=== PATIENT | female | born 1965 | race Caucasian/White ===

== ENCOUNTER 2016-06-13 00:13 | Emergency (ER) | payer BC ==
[2016-06-13] MEDS ORDERED: IPRATROPIUM/ALBUTEROL 0.5-2.5 MG/3 ML AMPUL NEB ONE (02:13)
[2016-06-13] MEDS ORDERED: PREDNISONE 20 MG TABLET PO ONE (02:13)
--- NOTE | 2016-06-13 02:16 | ER Document Report ---
ED General - General Chief Complaint: Difficulty Swallowing Stated Complaint: DIFFICULTY BREATHING Notes: Patient is a 51-year-old female presents with complaint of recurrent cough, some wheezing, some congestion. Today she said she went to a long coughing spell and then felt like her heart started to race and she became anxious. The symptoms since resolved. She does smoke. She denies any fevers. No other complaints at this time. No history of asthma. TRAVEL OUTSIDE OF THE [place] IN LAST 30 DAYS: No - Related Data Allergies/Adverse Reactions: aspirin [Aspirin] Allergy (Severe, Verified 12/30/15 08:27) ondansetron HCl [From Zofran] Allergy (Severe, Verified 12/30/15 08:27) itching, redness and whelps Penicillins Allergy (Severe, Verified 12/30/15 08:27) Past Medical History - Social History Smoking Status: Current Every Day Smoker Chew tobacco use (# tins/day): No Frequency of alcohol use: None Drug Abuse: None Family History: Arthritis, CAD, DM, Hyperlipidemia, Hypertension, Malignancy, Thyroid Disfunction Patient has suicidal ideation: No Patient has homicidal ideation: No - Past Medical History Cardiac Medical History: Reports: Hx Hypertension Denies: Hx Heart Attack Pulmonary Medical History: Denies: Hx Asthma, Hx Bronchitis, Hx COPD, Hx Pneumonia Neurological Medical History: Denies: Hx Seizures Renal/ Medical History: Denies: Hx Peritoneal Dialysis Musculoskeltal Medical History: Denies Hx Arthritis, Reports Hx Musculoskeletal Trauma - Fractured foot Traumatic Medical History: Reports: Hx Fractures - foot Past Surgical History: Reports: Hx Cholecystectomy - Immunizations Hx Diphtheria, Pertussis, Tetanus Vaccination: Yes Review of Systems - Review of Systems Notes: My Normal Review Basic REVIEW OF SYSTEMS: CONSTITUTIONAL : Denies fever, chills, or sweats. Denies recent illness. EENT: Some congestion CARDIOVASCULAR: Denies chest pain. RESPIRATORY: Recurrent cough GASTROINTESTINAL: Denies abdominal pain. Denies nausea, vomiting, or diarrhea. Denies constipation. Last BM: MUSCULOSKELETAL: Denies neck or back pain or joint pain or swelling. SKIN: Denies rash or skin lesions. NEUROLOGICAL: Denies altered mental status or loss of consciousness. Denies headache. Denies weakness or paralysis or loss of use of either side. Denies problems with gait or speech. Denies sensory or motor loss. ALL OTHER SYSTEMS REVIEWED AND NEGATIVE. Physical Exam - Vital signs Vitals: Temp Pulse Resp BP Pulse Ox 97.6 F 76 20 152/84 H 100 06/13/16 00:21 06/13/16 00:21 06/13/16 00:21 06/13/16 00:21 06/13/16 00:21 - Notes Notes: General Appearance: Well nourished, alert, cooperative, no acute distress, no obvious discomfort. Recurrent dry cough during exam. Well-appearing. Vitals: reviewed, See vital signs table. Head: no swelling or tenderness to the head Eyes: PERRL, EOMI, Conjuctiva clear Mouth: No decreasd moisture Throat: No tonsillar inflammation, No airway obstruction, No lymphadenopathy Neck: Supple, no neck tenderness, No thyromegaly Lungs: No wheezing, No rales, some scattered rhonci, No accessory muscle use, good air exchange bilaterally. Heart: Normal rate, Regular rythm, No murmur, no rub Skin: warm, dry, appropriate color, no rash Neuro: speech clear, oriented x 3, normal affect, responds appropriately to questions. Course - Vital Signs Vital signs: Temp Pulse Resp BP Pulse Ox 97.6 F 76 20 152/84 H 100 06/13/16 00:21 06/13/16 00:21 06/13/16 00:21 06/13/16 00:21 06/13/16 00:21 - Transfer of Care Notes: 06/13/16 03:29 Patient symptoms are very consistent with bronchitis. She had mild wheezing and rhonchorous breath sounds. Breathing treatment resolving. She's been having coughing a lot last several days and is a smoker. Chest x-rays negative for pneumonia. Patient will be discharged home with an Albuterol inhaler and prednisone. She's encouraged return to ER shows difficulty breathing, fevers, recurrent wheezing not responding to the inhaler, or she feels unwell. Patient agrees with plan and will be discharged home. 06/13/16 03:30 Dictation of this chart was performed using voice recognition software; therefore, there may be some unintended grammatical errors. Discharge - Discharge Clinical Impression: Bronchitis Condition: Good Disposition: HOME, SELF-CARE Additional Instructions: BRONCHITIS WITH BRONCHOSPASM (WHEEZING): You have bronchitis with bronchospasm (wheezing). Sometimes people develop wheezing with a chest cold. This occurs either because of an underlying tendency toward asthma or because the virus itself irritates the bronchial tubes. This irritation causes cough, shortness of breath, and wheezing. Emergency treatment of bronchospasm may include adrenaline shots or bronchodilator aerosol. You may feel lightheaded and have a rapid pulse for an hour or two. Rest and get plenty of fluids. At home, we'll treat you with a bronchodilator inhaler. Corticosteroids may be required for some patients. Until you recover, avoid chemical fumes, dusts, pollens, and exercising in very cold or dry air. If you smoke, stop now! Most cases of bronchitis get better without antibiotics. We prescribe antibiotics when we believe bacteria are damaging your airways, or if there's high risk the bronchitis will worsen into pneumonia. Increase your fluid intake. A cool mist humidifier may make your lungs more comfortable. An expectorant (cough medicine that loosens phlegm) can help. Repeated episodes of bronchitis and bronchospasm may result in lung damage -- for example, chronic bronchitis, recurrent pneumonias, or emphysema. If you develop a fever, increased wheezing, chest pain, or severe shortness of breath, you should contact the doctor immediately. INHALED BRONCHODILATORS: You have received a treatment of and/or prescription for an inhaled bronchodilator -- a medication which stimulates the airways in the lung to dilate. This improves the flow of air in asthma, bronchitis, and emphysema. These medicines have some similarity to adrenaline, and can cause similar side effects: shakiness, racing heart, and a sense of nervousness. These side effects decrease with time. Contact your doctor if these side effects are severe. Do not over-use the medicine. Too-frequent use of the inhaler may make it ineffective. Call your doctor if the inhaler is not controlling your symptoms at the prescribed doses. STEROID MEDICATION: You have been given an injection of or oral medicine of the cortisone/ steroid class. This medication is used to control inflammation or allergy. Kamari t is usually only given for a short period of time, until the acute process subsides. There are usually no side effects from short-term use of cortisone-like medications. Some persons feel an increased sense of well-being and are not sleepy at bedtime. Long-term use of cortisone medications is best avoided, unless required for a severe condition. If your condition does not remit, or relapses after the course of corticosteroid medication, you should consult your physician. SMOKING: If you smoke, you should stop smoking. The tar and chemicals in cigarette smoke are harmful. Smoking has been shown to cause: emphysema chronic bronchitis lung cancer mouth and throat cancer stomach and pancreas cancer premature aging defects In addition, smoking increases ear and lung infections in children of smokers. FOLLOW-UP CARE: If you have been referred to a physician for follow-up care, call the physician s office for an appointment as you were instructed or within the next two days. If you experience worsening or a significant change in your symptoms, notify the physician immediately or return to the Emergency Department at any time for re-evaluation. Please return to ER immediately if you have difficulty breathing, recurrent wheezing not responding to your inhaler, chest pain, fevers, or feel unwell. Please use inhaler as 2 puffs every 4 hours as needed for wheezing. Prescriptions: Prednisone [Deltasone 20 mg Tablet] 3 tab PO DAILY 3 Days Forms: Return to Work
[2016-06-13] MEDS ORDERED: ALBUTEROL SULFATE HFA (90 MCG/PUFF) 8 GM MDI (1 MDI/ER DISP) IH ONE (03:26)
[2016-06-13 03:44] VITALS: BP 121/67
== END 2016-06-13 03:44 | disposition home or self-care (01) ==
LOC: ER 00:13
DX: J40 Bronchitis, not specified as acute or chronic (principal); R06.2 Wheezing; F17.200 Nicotine dependence, unspecified, uncomplicated; I10 Essential (primary) hypertension; Z88.6 Allergy status to analgesic agent; Z88.0 Allergy status to penicillin; Z90.49 Acquired absence of other specified parts of digestive tract
CPT/HCPCS: 94640; 99284; 71020; J7512; J3490; J7620

== ENCOUNTER 2017-01-20 11:01 | Emergency (ER) | payer BC ==
[2017-01-20] MEDS ORDERED: NORMAL SALINE 1000 ML 1,000 ML IV PRN (12:42)
[2017-01-20] MEDS ORDERED: MORPHINE SULFATE 10 MG/ML INJ IV ONE (12:42)
[2017-01-20] MEDS ORDERED: METOCLOPRAMIDE HCL INJ/PF 10 MG/2 ML SDV IV ONE (12:43)
--- NOTE | 2017-01-20 12:44 | ER Document Report ---
ED Medical Screen (RME) - General Chief Complaint: Chest Pain Stated Complaint: CHEST PAIN Time Seen by Provider: 01/20/17 12:41 Notes: Patient presents with left upper chest pain that radiates to her back. This been present for 4-5 days. She denies having any cough but she does feel short of breath. No previous history of DVT or PE. She is not a smoker. No history of hormone usage. Patient was diagnosed on Wednesday at urgent care with walking pneumonia". She was treated with steroids and antibiotics but the pain is getting worse. No previous history of cardiac disease. EKG at triage shows diffuse lateral ST depression that was not present on previous EKG. TRAVEL OUTSIDE OF THE [place] IN LAST 30 DAYS: No - Related Data Allergies/Adverse Reactions: aspirin [Aspirin] Allergy (Severe, Verified 01/20/17 11:15) ondansetron HCl [From Zofran] Allergy (Severe, Verified 01/20/17 11:15) itching, redness and whelps Penicillins Allergy (Severe, Verified 01/20/17 11:15) Past Medical History - Social History Chew tobacco use (# tins/day): No Frequency of alcohol use: None Drug Abuse: None - Past Medical History Cardiac Medical History: Reports: Hx Hypertension Denies: Hx Heart Attack Pulmonary Medical History: Denies: Hx Asthma, Hx Bronchitis, Hx COPD, Hx Pneumonia Neurological Medical History: Denies: Hx Seizures Renal/ Medical History: Denies: Hx Peritoneal Dialysis Musculoskeltal Medical History: Denies Hx Arthritis, Reports Hx Musculoskeletal Trauma - Fractured foot Traumatic Medical History: Reports: Hx Fractures - foot Past Surgical History: Reports: Hx Cholecystectomy, Hx Vascular Surgery - neck - Immunizations Hx Diphtheria, Pertussis, Tetanus Vaccination: Yes Physical Exam - Vital signs Vitals: Temp Pulse Resp BP Pulse Ox 98.5 F 87 18 150/78 H 99 01/20/17 11:13 01/20/17 11:13 01/20/17 11:13 01/20/17 11:13 01/20/17 11:13 Course - Vital Signs Vital signs: Temp Pulse Resp BP Pulse Ox 98.5 F 87 18 150/78 H 99 01/20/17 11:13 01/20/17 11:13 01/20/17 11:13 01/20/17 11:13 01/20/17 11:13
[2017-01-20 13:28] LABS: ABSOLUTE LYMPHOCYTES (AUTO) 1.4 10^3/uL (0.5-4.7); ABSOLUTE MONOCYTES (AUTO) 0.2 10^3/uL (0.1-1.4); ABSOLUTE NEUT (AUTO) 9.9 10^3/uL (1.7-8.2); BASOPHILS % (AUTO) 0.3 % (0-2); EOSINOPHILS % (AUTO) 0.1 % (0-6); HEMATOCRIT 39.7 % (36.0-47.0); HEMOGLOBIN 13.5 g/dL (12.0-15.5); HGB HCT DIFFERENCE 0.8; LYMPHOCYTES % (AUTO) 12.3 % (13-45); MEAN CORPUSCULAR HEMOGLOBIN 30.7 pg (27.0-33.4); MEAN CORPUSCULAR VOLUME 90 fl (80-97); MONOCYTES % (AUTO) 1.5 % (3-13); RED CELL DISTRIBUTION WIDTH 13.1 % (11.5-14.0); SEGMENTED NEUTROPHILS % (AUTO) 85.8 % (42-78); WHITE BLOOD COUNT 11.6 10^3/uL (4.0-10.5)
[2017-01-20 13:40] LABS: ALANINE AMINOTRANSFERASE 27 U/L (9-52); ALKALINE PHOSPHATASE 115 U/L (38-126); ANION GAP 17 (5-19); ASPARTATE AMINO TRANSFERASE 17 U/L (14-36); BILIRUBIN,DIRECT 0.3 mg/dL (0.0-0.4); BILIRUBIN,TOTAL 0.6 mg/dL (0.2-1.3); BLOOD UREA NITROGEN 22 mg/dL (7-20); CALCIUM 10.3 mg/dL (8.4-10.2); CARBON DIOXIDE 20 mmol/L (22-30); CHLORIDE 103 mmol/L (98-107); CREATININE RESULT 0.82 mg/dL (0.52-1.25); GLUCOSE 108 mg/dL (75-110); POTASSIUM 4.4 mmol/L (3.6-5.0); SODIUM 140.4 mmol/L (137-145); TOTAL PROTEIN 7.8 g/dL (6.3-8.2)
--- NOTE | 2017-01-20 14:04 | EKG REPORT ---
SEVERITY:- BORDERLINE ECG - SINUS RHYTHM SHORT IA INTERVAL, ACCELERATED AV CONDUCTION : Confirmed by: Cedric Perla MD 20-Jan-2017 14:02:49
--- NOTE | 2017-01-20 14:15 | RADIOLOGY REPORT (SQ) ---
EXAM DESCRIPTION: CHEST PA/LAT COMPLETED DATE/TIME: 01/20/2017 2:08 pm REASON FOR STUDY: recent dx of pneumonia, worse, cp, sob COMPARISON: 06/13/2016 EXAM PARAMETERS: NUMBER OF VIEWS: two views TECHNIQUE: Digital Frontal and Lateral radiographic views of the chest acquired. RADIATION DOSE: NA LIMITATIONS: none FINDINGS: LUNGS AND PLEURA: No opacities, masses or pneumothorax. No pleural effusion. MEDIASTINUM AND HILAR STRUCTURES: No masses or contour abnormalities. HEART AND VASCULAR STRUCTURES: Heart normal size. No evidence for failure. BONES: No acute findings. HARDWARE: None in the chest. OTHER: No other significant finding. IMPRESSION: NO SIGNIFICANT RADIOGRAPHIC FINDING IN THE CHEST. TECHNICAL DOCUMENTATION: JOB ID: [id number] [employer]- All Rights Reserved
[2017-01-20] MEDS ORDERED: HYDROCODONE/ACETAMINOPHEN 5-325 MG TABLET PO ONE (14:25)
[2017-01-20] MEDS ORDERED: ALBUTEROL SULFATE 0.083% NEB 2.5 MG/3 ML AMPUL NEB ONE (15:33)
[2017-01-20] MEDS ORDERED: HYDROXYZINE PAMOATE 50 MG CAPSULE PO ONE (16:32)
--- NOTE | 2017-01-20 17:19 | ER Document Report ---
ED Cardiac - General Chief Complaint: Chest Pain Stated Complaint: CHEST PAIN Time Seen by Provider: 01/20/17 12:41 Mode of Arrival: Ambulatory Information source: Patient Notes: Patient is a 51-year-old female who presents to the ER today for chest pain 1 week. Patient saw urgent care last week he was diagnosed with walking pneumonia , has been on antibiotics, Levaquin and prednisone. She does also smoke. Patient denies any fevers, cough, chills. She states that she feels short of breath and that the antibiotics and steroids are not helping with that symptom. She states that urgent care told her it might be a blood clot in her lungs and now she is very nervous about that. She denies any recent travel, calf pain , surgeries or hormonal treatment. TRAVEL OUTSIDE OF THE [place] IN LAST 30 DAYS: No - Related Data Allergies/Adverse Reactions: aspirin [Aspirin] Allergy (Severe, Verified 01/20/17 11:15) ondansetron HCl [From Zofran] Allergy (Severe, Verified 01/20/17 11:15) itching, redness and whelps Penicillins Allergy (Severe, Verified 01/20/17 11:15) Past Medical History - General Information source: Patient - Social History Smoking Status: Current Every Day Smoker Chew tobacco use (# tins/day): No Frequency of alcohol use: None Drug Abuse: None Family History: Arthritis, CAD, DM, Hyperlipidemia, Hypertension, Malignancy, Thyroid Disfunction - Past Medical History Cardiac Medical History: Reports: Hx Hypertension Denies: Hx Heart Attack Pulmonary Medical History: Denies: Hx Asthma, Hx Bronchitis, Hx COPD, Hx Pneumonia Neurological Medical History: Denies: Hx Seizures Renal/ Medical History: Denies: Hx Peritoneal Dialysis Musculoskeltal Medical History: Denies Hx Arthritis, Reports Hx Musculoskeletal Trauma - Fractured foot Traumatic Medical History: Reports: Hx Fractures - foot Past Surgical History: Reports: Hx Cholecystectomy, Hx Vascular Surgery - neck - Immunizations Hx Diphtheria, Pertussis, Tetanus Vaccination: Yes Review of Systems - Review of Systems Constitutional: No symptoms reported EENT: No symptoms reported Cardiovascular: See HPI Respiratory: See HPI Gastrointestinal: No symptoms reported Genitourinary: No symptoms reported Female Genitourinary: No symptoms reported Musculoskeletal: No symptoms reported Skin: No symptoms reported Hematologic/Lymphatic: No symptoms reported Neurological/Psychological: No symptoms reported Physical Exam - Vital signs Vitals: Temp Pulse Resp BP Pulse Ox 98.5 F 87 18 150/78 H 99 01/20/17 11:13 01/20/17 11:13 01/20/17 11:13 01/20/17 11:13 01/20/17 11:13 - Notes Notes: PHYSICAL EXAMINATION: GENERAL: Anxious appearing, but airway patent is in no acute distress. HEAD: Atraumatic, normocephalic. EYES: Pupils equal round and reactive to light, extraocular movements intact, sclera anicteric, conjunctiva are normal. ENT: ear canals without erythema or foreign body, TMs pearly dao with good bony landmarks, nares patent, oropharynx clear without exudates. Moist mucous membranes. Airway patent NECK: Normal range of motion, supple without lymphadenopathy LUNGS: CTAB and equal. No wheezes rales or rhonchi. HEART: Regular rate and rhythm without murmurs ABDOMEN: Soft, no tenderness. No guarding, no rebound BACK: no vertebral tenderness, normal ROM GI/: no CVA tenderness EXTREMITIES: Normal range of motion, no pitting edema. No cyanosis. NEUROLOGICAL: Cranial nerves grossly intact. Normal sensory/motor exams. PSYCH: Normal mood, normal affect. SKIN: Warm, Dry, normal turgor, no rashes or lesions noted Course - Re-evaluation Re-evalutation: 01/20/17 17:16 Patient's respiratory rate is normal with an oxygen saturation of 100% on room air. Chest x-ray is negative for any acute pathology, blood work is unremarkable including negative cardiac enzymes. EKG reveals normal sinus rhythm at a rate of 98 bpm. D-dimer is negative. Patient had no relief after breathing treatments. patient's heart rate has remained between 70 and 90 bpm, she has not been tachycardic here at all. I have very low suspicion for pulmonary embolism with negative d-dimer and no real clinical signs. She does not appear short of breath, just anxious. - Vital Signs Vital signs: Temp Pulse Resp BP Pulse Ox 98.5 F 87 15 137/69 H 100 01/20/17 11:13 01/20/17 11:13 01/20/17 16:01 01/20/17 16:01 01/20/17 16:01 - Laboratory Result Diagrams: 01/20/17 13:10 01/20/17 13:10 Laboratory results interpreted by me: 01/20/17 01/20/17 13:10 13:10 WBC 11.6 H Seg Neutrophils % 85.8 H Lymphocytes % 12.3 L Monocytes % 1.5 L Absolute Neutrophils 9.9 H Carbon Dioxide 20 L BUN 22 H Calcium 10.3 H Discharge - Discharge Clinical Impression: Shortness of breath, Anxiety Condition: Stable Disposition: HOME, SELF-CARE Additional Instructions: Stay on the antibiotics and steroids that you are currently taking. Return immediately for any new or worsening symptoms. Follow up with primary care provider, call tomorrow to make followup appointment. Prescriptions: Hydroxyzine Pamoate [Vistaril 25 mg Capsule] 1 - 2 cap PO Q8 PRN #12 capsule PRN Reason:
[2017-01-20 17:28] VITALS: BP 138/74
== END 2017-01-20 17:29 | disposition home or self-care (01) ==
LOC: ER 11:01
DX: R07.9 Chest pain, unspecified (principal); R06.02 Shortness of breath; F41.9 Anxiety disorder, unspecified; Z79.899 Other long term (current) drug therapy; F17.200 Nicotine dependence, unspecified, uncomplicated
CPT/HCPCS: 93005; 94640; 99285; 96361; 96374; 96375; 36415; 85025; 80053; 84484; 85379; 71020; 93010; J2765; J2270; J7030

== ENCOUNTER 2017-05-04 18:59 | Emergency (ER) | payer BC ==
[2017-05-04 20:02] VITALS: BP 148/91
--- NOTE | 2017-05-04 20:07 | ER Document Report ---
HPI - HPI Patient complains to provider of: Headache Pain Level: 2 Context: Patient is a 52-year-old female, chief complaint of headache, sinus pressure, pain in her sinuses, and congestion. She states that she checked her blood pressure at home and it was 160 systolic so she can be evaluated. 130s systolic on recheck. She states her headache has been intermittent, mildly progressive, and has come back for the last few days. She denies fever, focal numbness or weakness, vomiting, visual changes, or any symptoms other than congestion and mild headache at this time. Past medical history of smoking, hypertension. - REPRODUCTIVE Reproductive: DENIES: : Past Medical History - General Information source: Patient - Social History Smoking Status: Former Smoker Frequency of alcohol use: None Drug Abuse: None Lives with: Family Family History: Arthritis, CAD, DM, Hyperlipidemia, Hypertension, Malignancy, Thyroid Disfunction - Past Medical History Cardiac Medical History: Reports: Hx Hypertension Denies: Hx Heart Attack Pulmonary Medical History: Denies: Hx Asthma, Hx Bronchitis, Hx COPD, Hx Pneumonia Neurological Medical History: Denies: Hx Seizures Renal/ Medical History: Denies: Hx Peritoneal Dialysis Musculoskeltal Medical History: Denies Hx Arthritis, Reports Hx Musculoskeletal Trauma - Fractured foot Traumatic Medical History: Reports: Hx Fractures - foot Past Surgical History: Reports: Hx Cholecystectomy, Hx Vascular Surgery - neck - Immunizations Hx Diphtheria, Pertussis, Tetanus Vaccination: Yes Vertical Provider Document - CONSTITUTIONAL General Appearance: WD/WN, No Apparent Distress - Patient sounds congested but otherwise she is smiling, talkative, alert, well-appearing - INFECTION CONTROL TRAVEL OUTSIDE OF THE [place] IN LAST 30 DAYS: No - HEENT HEENT: Atraumatic, Normocephalic, PERRLA. negative: Conjuctival Injection, Normal ENT Exam - Tenderness over both maxillary sinuses, nasal congestion, mild posterior erythema, unremarkable ENT exam otherwise - NECK Neck: Normal Inspection - RESPIRATORY Respiratory: Breath Sounds Normal, No Respiratory Distress O2 Sat by Pulse Oximetry: 99 - CARDIOVASCULAR Cardiovascular: Regular Rate, Regular Rhythm - GI/ABDOMEN Gastrointestinal: Abdomen Soft, Abdomen Non-Tender - BACK Back: Normal Inspection - NEURO Level of Consciousness: Awake, Alert, Appropriate Motor/Sensory: No Motor Deficit, No Sensory Deficit - DERM Integumentary: Warm, Dry, No Rash Course - Re-evaluation Re-evalutation: Patient is very congested, she points to her maxillary sinuses and nose when asked where she hurts, she denies headache in a different location, she has no neurological deficits, no focal numbness or weakness, no vomiting, no fever. Mild erythema of the pharynx from postnasal drip. Mild occasional cough. Her pressure unremarkable. Very low suspicion of ICH or other acute abnormality. Patient is very well-appearing. Discussed with patient, after discussion patient will be treated with medications to reduce congestion, antibiotics for sinus infection, discussed follow-up, discussed return precautions, patient states satisfaction and agreement. - Vital Signs Vital signs: Temp Pulse Resp BP Pulse Ox 97.9 F 92 16 148/91 H 99 05/04/17 19:57 05/04/17 19:57 05/04/17 19:57 05/04/17 19:57 05/04/17 19:57 Discharge - Discharge Clinical Impression: Sinusitis Qualifiers: Sinusitis location: maxillary Chronicity: acute Recurrence: non-recurrent Qualified Code(s): J01.00 - Acute maxillary sinusitis, unspecified Headache Qualifiers: Headache type: unspecified Headache chronicity pattern: acute headache Intractability: not intractable Qualified Code(s): R51 - Headache Condition: Stable Disposition: HOME, SELF-CARE Additional Instructions: Examination does not show any concerning abnormalities, indicates sinus infection. Recommend the Flonase to help reduce sinus congestion, take antibiotic as prescribed. Over the counter anti-allergy medications can help. Follow-up routinely with primary care for reevaluation of your blood pressure. Return to the emergency department if you worsen including severe headache, vomiting, fever, difficulty breathing, or any other concerning symptoms. Prescriptions: Doxycycline Hyclate 100 mg PO BID #14 capsule Fluticasone Propionate [Flonase Nasal Mobile 50 Mcg/Mobile 16 gm] 1 spray NASL Q12 #1 inhaler Referrals: GAMALIEL MOLINA MD [Primary Care Provider] - Follow up as needed
== END 2017-05-04 20:17 | disposition home or self-care (01) ==
LOC: ER 18:59
DX: J01.00 Acute maxillary sinusitis, unspecified (principal); R51 Headache; I10 Essential (primary) hypertension; Z90.49 Acquired absence of other specified parts of digestive tract
CPT/HCPCS: 99283

== ENCOUNTER 2018-09-19 10:20 | Emergency (ER) | payer BC ==
[2018-09-19] MEDS ORDERED: NORMAL SALINE 1000 ML 1,000 ML IV ONE (11:43)
[2018-09-19] MEDS ORDERED: ONDANSETRON HCL INJ/PF 4 MG/2 ML SDV IV ONE (11:43)
[2018-09-19] MEDS ORDERED: PROMETHAZINE HCL 25 MG TABLET PO ONE (11:45)
--- NOTE | 2018-09-19 11:47 | ER Document Report ---
ED Medical Screen (RME) - General Chief Complaint: Black/Tarry Stools Stated Complaint: VOMITING Time Seen by Provider: 09/19/18 11:38 Primary Care Provider: GAMALIEL MOLINA MD [Primary Care Provider] - Follow up as needed Mode of Arrival: Ambulatory Information source: Patient TRAVEL OUTSIDE OF THE [place] IN LAST 30 DAYS: No - HPI Patient complains to provider of: ABDO PAIN, N/V/D Notes: 09/19/18 11:45 Patient is here with complaints of nausea, vomiting, diarrhea with the upper/epigastric abdominal pain. States that symptoms started last week with nausea, vomiting, diarrhea and fever. Fever has since resolved. She now is complaining of some epigastric pain. The pain is much worse when she eats and then she feels very bloated and burps a lot. No fever since. She continues to have nausea vomiting and has had some watery black-colored diarrhea. She has had her gallbladder removed. Exam No distress, nontoxic-appearing. Lungs clear and equal throughout. Heart sounds normal. Epigastric discomfort to palpation. Plan CBC, CMP, lipase, urine, Phenergan, IV fluids. An initial examination was made on the patient as part of the triage process, and it was determined a more comprehensive evaluation was necessary. Initial labs were ordered and patient was transferred to another provider in the ED who assumed care and finished evaluation and plan. - Related Data Allergies/Adverse Reactions: aspirin [Aspirin] Allergy (Severe, Verified 05/04/17 19:03) ondansetron HCl [From Zofran] Allergy (Severe, Verified 05/04/17 19:03) itching, redness and whelps Penicillins Allergy (Severe, Verified 05/04/17 19:03) Past Medical History - Social History Chew tobacco use (# tins/day): No Frequency of alcohol use: None Drug Abuse: None - Past Medical History Cardiac Medical History: Reports: Hx Hypertension Denies: Hx Heart Attack Pulmonary Medical History: Denies: Hx Asthma, Hx Bronchitis, Hx COPD, Hx Pneumonia Neurological Medical History: Denies: Hx Seizures Renal/ Medical History: Denies: Hx Peritoneal Dialysis Musculoskeltal Medical History: Denies Hx Arthritis, Reports Hx Musculoskeletal Trauma - Fractured foot Traumatic Medical History: Reports: Hx Fractures - foot Past Surgical History: Reports: Hx Cholecystectomy, Hx Vascular Surgery - neck - Immunizations Hx Diphtheria, Pertussis, Tetanus Vaccination: Yes Physical Exam - Vital signs Vitals: Temp Pulse Resp BP Pulse Ox 98.1 F 89 16 133/76 H 98 09/19/18 10:31 09/19/18 10:31 09/19/18 10:31 09/19/18 10:31 09/19/18 10:31 Course - Vital Signs Vital signs: Temp Pulse Resp BP Pulse Ox 98.1 F 89 16 133/76 H 98 09/19/18 10:31 09/19/18 10:31 09/19/18 10:31 09/19/18 10:31 09/19/18 10:31 Doctor's Discharge - Discharge Referrals: GAMALIEL MOLINA MD [Primary Care Provider] - Follow up as needed
[2018-09-19 12:32] LABS: ABSOLUTE EOSINOPHILS # (AUTO) 0.1 10^3/uL (0.0-0.6); ABSOLUTE LYMPHOCYTES (AUTO) 1.2 10^3/uL (0.5-4.7); ABSOLUTE MONOCYTES (AUTO) 0.6 10^3/uL (0.1-1.4); ABSOLUTE NEUT (AUTO) 5.6 10^3/uL (1.7-8.2); BASOPHILS % (AUTO) 0.6 % (0-2); EOSINOPHILS % (AUTO) 0.9 % (0-6); HEMOGLOBIN 13.1 g/dL (12.0-15.5); LYMPHOCYTES % (AUTO) 16.1 % (13-45); MEAN CORPUSCULAR HEMOGLOBIN 30.1 pg (27.0-33.4); MEAN CORPUSCULAR HGB CONC 33.6 g/dL (32.0-36.0); MEAN CORPUSCULAR VOLUME 90 fl (80-97); MONOCYTES % (AUTO) 8.1 % (3-13); PLATELET COUNT 309 10^3/uL (150-450); RED BLOOD COUNT 4.35 10^6/uL (3.72-5.28); SEGMENTED NEUTROPHILS % (AUTO) 74.3 % (42-78); TOTAL CELLS COUNTED % (AUTO) 100 %; WHITE BLOOD COUNT 7.5 10^3/uL (4.0-10.5)
[2018-09-19 12:36] LABS: APPEARANCE,URINE CLEAR; BILIRUBIN,URINE NEGATIVE (NEGATIVE); COLOR,URINE YELLOW; GLUCOSE, URINE NEGATIVE (NEGATIVE); KETONES,URINE NEGATIVE (NEGATIVE); LEUKOCYTE ESTERASE,URINE TRACE (NEGATIVE); NITRITE,URINE NEGATIVE (NEGATIVE); PROTEIN,URINE NEGATIVE (NEGATIVE); URINE SPECIFIC GRAVITY 1.021; UROBILINOGEN,URINE NEGATIVE mg/dL (<2.0)
[2018-09-19 12:51] LABS: ALANINE AMINOTRANSFERASE 27 U/L (9-52); ALBUMIN 4.2 g/dL (3.5-5.0); ALKALINE PHOSPHATASE 136 U/L (38-126); ANION GAP 9 (5-19); ASPARTATE AMINO TRANSFERASE 20 U/L (14-36); BILIRUBIN,DIRECT 0.2 mg/dL (0.0-0.4); BILIRUBIN,TOTAL 0.8 mg/dL (0.2-1.3); BLOOD UREA NITROGEN 12 mg/dL (7-20); CALCIUM 9.1 mg/dL (8.4-10.2); CARBON DIOXIDE 26 mmol/L (22-30); CHLORIDE 104 mmol/L (98-107); GLUCOSE 86 mg/dL (75-110); LIPASE 67.3 U/L (23-300); POTASSIUM 4.5 mmol/L (3.6-5.0); SODIUM 139.2 mmol/L (137-145); TOTAL PROTEIN 7.2 g/dL (6.3-8.2)
--- NOTE | 2018-09-19 16:20 | ER Document Report ---
ED General - General Chief Complaint: Black/Tarry Stools Stated Complaint: VOMITING Time Seen by Provider: 09/19/18 11:38 Primary Care Provider: GAMALIEL MOLINA MD [NO LOCAL MD] - Follow up as needed Mode of Arrival: Ambulatory Notes: 53-year-old female with no past medical history presents to the emergency department for vomiting and black diarrhea x5 days. She states she is nauseated, has back pain, has epigastric pain, and a headache. She has taken Pepto-Bismol and Mylanta for the GI upset. She had a fever approximately 4 days ago but is been afebrile since. She denies any neck stiffness, dizziness or lightheadedness, shortness of breath or chest pain. She denies any urinary symp toms. No other complaints TRAVEL OUTSIDE OF THE [place] IN LAST 30 DAYS: No - Related Data Allergies/Adverse Reactions: aspirin [Aspirin] Allergy (Severe, Verified 05/04/17 19:03) ondansetron HCl [From Zofran] Allergy (Severe, Verified 05/04/17 19:03) itching, redness and whelps Penicillins Allergy (Severe, Verified 05/04/17 19:03) Past Medical History - General Information source: Patient - Social History Smoking Status: Unknown if Ever Smoked Chew tobacco use (# tins/day): No Frequency of alcohol use: None Drug Abuse: None Family History: Arthritis, CAD, DM, Hyperlipidemia, Hypertension, Malignancy, Thyroid Disfunction Patient has suicidal ideation: No Patient has homicidal ideation: No - Past Medical History Cardiac Medical History: Reports: Hx Hypertension Denies: Hx Heart Attack Pulmonary Medical History: Denies: Hx Asthma, Hx Bronchitis, Hx COPD, Hx Pneumonia Neurological Medical History: Denies: Hx Seizures Renal/ Medical History: Denies: Hx Peritoneal Dialysis Musculoskeletal Medical History: Denies Hx Arthritis, Reports Hx Musculoskeletal Trauma - Fractured foot Traumatic Medical History: Reports: Hx Fractures - foot Past Surgical History: Reports: Hx Cholecystectomy, Hx Vascular Surgery - neck - Immunizations Hx Diphtheria, Pertussis, Tetanus Vaccination: Yes Review of Systems - Review of Systems Constitutional: See HPI EENT: No symptoms reported Cardiovascular: See HPI Respiratory: See HPI Gastrointestinal: See HPI Genitourinary: See HPI Female Genitourinary: No symptoms reported Musculoskeletal: No symptoms reported Skin: No symptoms reported Hematologic/Lymphatic: No symptoms reported Neurological/Psychological: See HPI Physical Exam - Vital signs Vitals: Temp Pulse Resp BP Pulse Ox 98.1 F 89 16 133/76 H 98 09/19/18 10:31 09/19/18 10:31 09/19/18 10:31 09/19/18 10:31 09/19/18 10:31 - Notes Notes: PHYSICAL EXAMINATION: Reviewed vital signs and charting by RN GENERAL: Well-appearing, well-nourished and in no acute distress. HEAD: Atraumatic, normocephalic. No scalp deformity, depression, or crepitance. EYES: Pupils are 3 mm and equal/round, extraocular movements intact, sclera anicteric, conjunctiva are normal. NECK: Normal range of motion, supple without lymphadenopathy. LUNGS: Breath sounds present, equal, and clear to auscultation bilaterally. No wheezes, rales, or rhonchi. HEART: Regular rate and rhythm without murmurs, rubs, or gallops. 2+ peripheral pulses. Normal capillary refill. ABDOMEN: Soft, left upper quadrant tenderness to palpation, nondistended. Normoactive bowel sounds. No guarding, no rebound. No masses appreciated. BACK: Normal contour, no midline tenderness. Rectal exam deferred. PELVC: Deferred. EXTREMITIES: Normal range of motion, no pitting or edema. No cyanosis. NEUROLOGICAL: No focal neurological deficits. Moves all extremities spontaneously and on command. PSYCH: Normal mood, normal affect. No suicidal thoughts/ideations. No homocidal thoughts/ideations. No hallucinations. SKIN: Warm, dry, normal turgor, no rashes or lesions noted. Course - Re-evaluation Re-evalutation: 09/19/18 16:26 Overall well-appearing. If lower urinary tract infection, leukocytosis, abnormal liver biochemical testing, or electrolyte derangements. She is received IV fluid rehydration, Zofran and reports feeling much better. At this time I have ordered stool studies. - Vital Signs Vital signs: Temp Pulse Resp BP Pulse Ox 98.1 F 69 16 138/66 H 96 09/19/18 10:31 09/19/18 18:37 09/19/18 18:37 09/19/18 18:37 09/19/18 18:37 - Laboratory Result Diagrams: 09/19/18 12:05 09/19/18 12:05 Laboratory results interpreted by me: 09/19/18 09/19/18 12:05 12:05 Alkaline Phosphatase 136 H Ur Leukocyte Esterase TRACE H Discharge - Discharge Clinical Impression: Epigastric pain Diarrhea Qualifiers: Diarrhea type: unspecified type Qualified Code(s): R19.7 - Diarrhea, unspecified Nausea & vomiting Qualifiers: Vomiting type: unspecified Vomiting Intractability: non-intractable Qualified Code(s): R11.2 - Nausea with vomiting, unspecified Condition: Good Disposition: HOME, SELF-CARE Instructions: Abdominal Pain ([facility]), Antinausea Medication ([facility]), Intravenous (IV) Fluids ([facility]), Reglan ([facility]) Additional Instructions: You were seen in the emergency department this evening for diarrhea and black stools. It was negative for any blood in your stool. The stool cultures will take 3 days. If they are positive you will get a call back and then we will initiate appropriate treatment if necessary. If you continue to have profuse diarrhea for the next several days, have intractable nausea or vomiting, severe debilitating abdominal pain, severe chest pain or shortness of breath, or have any other concerns please immediately return to the emergency department. Prescriptions: Metoclopramide HCl [Reglan 10 mg Tablet] 1 tab PO Q6H PRN #25 tablet PRN Reason: Referrals: GAMALIEL MOLINA MD [NO LOCAL MD] - Follow up as needed
[2018-09-19 18:38] VITALS: BP 138/66
== END 2018-09-19 18:54 | disposition home or self-care (01) ==
LOC: ER 10:20
DX: R19.7 Diarrhea, unspecified (principal); R11.2 Nausea with vomiting, unspecified; R10.13 Epigastric pain; R51 Headache; I10 Essential (primary) hypertension; Z88.0 Allergy status to penicillin; Z88.6 Allergy status to analgesic agent; Z90.49 Acquired absence of other specified parts of digestive tract
CPT/HCPCS: 99284; 96360; 96361; 36415; 87045; 87205; 83690; 85025; 82272; 80053; 81001; J7030

== ENCOUNTER 2020-01-16 09:21 | Emergency (ER) | payer BC ==
[2020-01-16] MEDS ORDERED: NORMAL SALINE 1000 ML 1,000 ML IV ONE (10:02)
[2020-01-16] MEDS ORDERED: NITROGLYCERIN 0.4 MG/TAB 25 TAB/BOTTLE SL PRN (10:15)
[2020-01-16] MEDS ORDERED: ASPIRIN 325 MG TABLET PO ONE (10:15)
[2020-01-16] MEDS ORDERED: ACETAMINOPHEN 325 MG TABLET PO ONE (10:32)
[2020-01-16 10:38] LABS: ABSOLUTE BASOPHILS # (AUTO) 0.1 10^3/uL (0.0-0.2); ABSOLUTE EOSINOPHILS # (AUTO) 0.3 10^3/uL (0.0-0.6); ABSOLUTE MONOCYTES (AUTO) 0.5 10^3/uL (0.1-1.4); ABSOLUTE NEUT (AUTO) 4.5 10^3/uL (1.7-8.2); BASOPHILS % (AUTO) 1.5 % (0-2); EOSINOPHILS % (AUTO) 3.7 % (0-6); HEMATOCRIT 36.9 % (36.0-47.0); HEMOGLOBIN 12.8 g/dL (12.0-15.5); LYMPHOCYTES % (AUTO) 27.4 % (13-45); MEAN CORPUSCULAR HEMOGLOBIN 31.2 pg (27.0-33.4); MEAN CORPUSCULAR HGB CONC 34.7 g/dL (32.0-36.0); MEAN CORPUSCULAR VOLUME 90 fl (80-97); MONOCYTES % (AUTO) 6.3 % (3-13); PLATELET COUNT 346 10^3/uL (150-450); RED BLOOD COUNT 4.11 10^6/uL (3.72-5.28); RED CELL DISTRIBUTION WIDTH 13.1 % (11.5-14.0); SEGMENTED NEUTROPHILS % (AUTO) 61.1 % (42-78); TOTAL CELLS COUNTED % (AUTO) 100 %; WHITE BLOOD COUNT 7.3 10^3/uL (4.0-10.5)
[2020-01-16 11:03] LABS: ALBUMIN 4.2 g/dL (3.5-5.0); ALKALINE PHOSPHATASE 123 U/L (38-126); ANION GAP 5 (5-19); ASPARTATE AMINO TRANSFERASE 19 U/L (14-36); BILIRUBIN,DIRECT 0.3 mg/dL (0.0-0.4); BILIRUBIN,TOTAL 0.6 mg/dL (0.2-1.3); BLOOD UREA NITROGEN 21 mg/dL (7-20); CALCIUM 9.7 mg/dL (8.4-10.2); CARBON DIOXIDE 27 mmol/L (22-30); CHLORIDE 107 mmol/L (98-107); GLUCOSE 103 mg/dL (75-110); POTASSIUM 4.8 mmol/L (3.6-5.0); TOTAL PROTEIN 6.9 g/dL (6.3-8.2)
[2020-01-16 11:22] LABS: APPEARANCE,URINE CLEAR; BILIRUBIN,URINE NEGATIVE (NEGATIVE); COLOR,URINE YELLOW; GLUCOSE, URINE NEGATIVE (NEGATIVE); KETONES,URINE NEGATIVE (NEGATIVE); LEUKOCYTE ESTERASE,URINE TRACE (NEGATIVE); NITRITE,URINE NEGATIVE (NEGATIVE); PROTEIN,URINE NEGATIVE (NEGATIVE); URINE SPECIFIC GRAVITY 1.019; UROBILINOGEN,URINE NEGATIVE mg/dL (<2.0)
--- NOTE | 2020-01-16 13:37 | ER Document Report ---
ED Cardiac - General Chief Complaint: Palpitations Stated Complaint: SYNCOPE Time Seen by Provider: 01/16/20 09:40 Mode of Arrival: Ambulatory Information source: Patient TRAVEL OUTSIDE OF THE [place] IN LAST 30 DAYS: No - HPI Notes: Patient presents with a syncopal episode. 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 She states she does not believe she injured herself in any way when she fell she states she did not have any symptoms before passing out. She states this did happen one other time and she was referred to cardiology but has not followed up. She has never had any type of cardiology evaluation. She states she was getting some chest pain yesterday that was under the left breast. There was no significant radiation of the pain. Nothing made it better or worse. Is mild to moderate in intensity. Today she states she did not have this pain but she does have some chest pressure on the left. Patient denies any shortness of breath. No sweating. No cough cold or congestion. She states she does smoke but quit 2 days ago. - Related Data Allergies/Adverse Reactions: aspirin [Aspirin] Allergy (Severe, Verified 05/04/17 19:03) ondansetron HCl [From Zofran] Allergy (Severe, Verified 05/04/17 19:03) itching, redness and whelps Penicillins Allergy (Severe, Verified 05/04/17 19:03) Past Medical History - General Information source: Patient - Social History Smoking Status: Former Smoker Chew tobacco use (# tins/day): No Frequency of alcohol use: None Drug Abuse: None Family History: Arthritis, CAD, DM, Hyperlipidemia, Hypertension, Malignancy, Thyroid Disfunction - Past Medical History Cardiac Medical History: Reports: Hx Hypertension Denies: Hx Heart Attack Pulmonary Medical History: Denies: Hx Asthma, Hx Bronchitis, Hx COPD, Hx Pneumonia Neurological Medical History: Denies: Hx Seizures Renal/ Medical History: Denies: Hx Peritoneal Dialysis Musculoskeletal Medical History: Denies Hx Arthritis, Reports Hx Musculoskeletal Trauma - Fractured foot Traumatic Medical History: Reports: Hx Fractures - foot Past Surgical History: Reports: Hx Cholecystectomy, Hx Vascular Surgery - neck - Immunizations Hx Diphtheria, Pertussis, Tetanus Vaccination: Yes Review of Systems - Review of Systems Constitutional: denies: Chills, Fever Cardiovascular: Chest pain, Palpitations Respiratory: denies: Cough, Short of breath -: Yes All other systems reviewed and negative Physical Exam - Vital signs Vitals: Temp 98.2 F 01/16/20 09:21 Interpretation: Normal - General General appearance: Appears well, Alert - HEENT Head: Normocephalic, Atraumatic Eyes: Normal Pupils: PERRL - Respiratory Respiratory status: No respiratory distress Chest status: Nontender Breath sounds: Normal Chest palpation: Normal - Cardiovascular Rhythm: Regular Heart sounds: Normal auscultation Murmur: No - Abdominal Inspection: Normal Distension: No distension Bowel sounds: Normal Tenderness: Nontender Organomegaly: No organomegaly - Back Back: Normal, Nontender - Extremities General upper extremity: Normal inspection, Nontender, Normal color, Normal ROM, Normal temperature General lower extremity: Normal inspection, Nontender, Normal color, Normal ROM, Normal temperature, Normal weight bearing. No: López's sign - Neurological Neuro grossly intact: Yes Cognition: Normal Orientation: AAOx4 [place] Coma Scale Eye Opening: Spontaneous Mauricio Coma Scale Verbal: Oriented [place] Coma Scale Motor: Obeys Commands Mauricio Coma Scale Total: 15 Speech: Normal Motor strength normal: LUE, RUE, LLE, RLE Sensory: Normal - Psychological Associated symptoms: Normal affect, Normal mood - Skin Skin Temperature: Warm Skin Moisture: Dry Skin Color: Normal Course - Re-evaluation Re-evalutation: 01/16/20 13:40 Patient presents with a syncopal episode. It was also accompanied by some chest pressure. 2 sets of enzymes are negative. There are no ischemic changes on EKG. She did have some chest pressure that got better with nitroglycerin. She was also given an aspirin. I have called and discussed the case with cardiology who has agreed to see the patient in the office tomorrow. I believe this is reasonable. They are going to set her up at that time with a stress test and an echo. Heart score is 3. - Vital Signs Vital signs: Temp Pulse Resp BP Pulse Ox 98.2 F 83 14 127/73 H 99 01/16/20 09:21 01/16/20 10:56 01/16/20 13:20 01/16/20 13:20 01/16/20 13:20 - Laboratory Result Diagrams: 01/16/20 10:19 01/16/20 10:19 Laboratory results interpreted by me: 01/16/20 01/16/20 10:19 10:52 BUN 21 H Ur Leukocyte Esterase TRACE H - Diagnostic Test Radiology reviewed: Image reviewed, Reports reviewed - EKG Interpretation by Me EKG shows normal: Sinus rhythm Rate: Normal - 65 Rhythm: NSR [place]/QRS: No: Right axis deviation, Left axis deviation Discharge - Discharge Clinical Impression: Syncope and collapse Chest pain Qualifiers: Chest pain type: unspecified Qualified Code(s): R07.9 - Chest pain, unspecified Condition: Stable Disposition: HOME, SELF-CARE Instructions: Syncopal Episode ([facility]), Chest Pain of Unclear Cause ([facility]) Additional Instructions: Dr. Grijalva will contact you to set up an appointment for tomorrow Forms: Return to Work Referrals: ELKE GRIJALVA MD [ACTIVE STAFF] - Follow up tomorrow
[2020-01-16 13:48] VITALS: BP 122/69
--- NOTE | 2020-01-17 00:57 | EKG REPORT ---
SEVERITY:- NORMAL ECG - SINUS RHYTHM : Confirmed by: Tati Landry 17-Jan-2020 00:56:09
== END 2020-01-16 13:58 | disposition home or self-care (01) ==
LOC: ER 09:21
DX: R55 Syncope and collapse (principal); R07.9 Chest pain, unspecified; I10 Essential (primary) hypertension
CPT/HCPCS: 93005; 99284; 96360; 96361; 36415; 85025; 80053; 81001; 84484; 93010; J7030

== ENCOUNTER 2020-01-18 11:39 | Emergency (ER) | payer BC ==
--- NOTE | 2020-01-18 11:41 | ER Document Report ---
ED Medical Screen (RME) - General Chief Complaint: Chest Pain Stated Complaint: CHEST PAIN Time Seen by Provider: 01/18/20 11:39 Primary Care Provider: ELKE GRIJALVA MD [Primary Care Provider] - Follow up as needed Mode of Arrival: Wheelchair Information source: Patient Notes: 44-year-old female presented to ED for severe chest pain radiating down the left arm. She states she was seen here 2 days ago for chest pain and was sent home. She states the pain is much worse. She states she is having a hard time getting her breath. She states she has a lot of pain and numbness going down the left arm. 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 She is short of breath. She was not able to get herself out of the car. We did take her out of the car put her in the wheelchair and took her straight to EKG. I have greeted and performed a rapid initial assessment of this patient. A comprehensive ED assessment and evaluation of the patient, analysis of test results and completion of medical decision making process will be conducted by an additional ED providers. TRAVEL OUTSIDE OF THE [place] IN LAST 30 DAYS: No - Related Data Allergies/Adverse Reactions: aspirin [Aspirin] Allergy (Severe, Verified 05/04/17 19:03) ondansetron HCl [From Zofran] Allergy (Severe, Verified 05/04/17 19:03) itching, redness and whelps Penicillins Allergy (Severe, Verified 05/04/17 19:03) Past Medical History - Past Medical History Cardiac Medical History: Reports: Hx Hypertension Denies: Hx Heart Attack Pulmonary Medical History: Denies: Hx Asthma, Hx Bronchitis, Hx COPD, Hx Pneumonia Neurological Medical History: Denies: Hx Seizures Renal/ Medical History: Denies: Hx Peritoneal Dialysis Musculoskeltal Medical History: Denies Hx Arthritis, Reports Hx Musculoskeletal Trauma - Fractured foot Traumatic Medical History: Reports: Hx Fractures - foot Past Surgical History: Reports: Hx Cholecystectomy, Hx Vascular Surgery - neck - Immunizations Hx Diphtheria, Pertussis, Tetanus Vaccination: Yes Doctor's Discharge - Discharge Referrals: ELKE GRIJALVA MD [Primary Care Provider] - Follow up as needed
[2020-01-18 13:06] LABS: HEMATOCRIT 36.9 % (36.0-47.0); HEMOGLOBIN 12.6 g/dL (12.0-15.5); MEAN CORPUSCULAR HEMOGLOBIN 30.6 pg (27.0-33.4); MEAN CORPUSCULAR HGB CONC 34.2 g/dL (32.0-36.0); MEAN CORPUSCULAR VOLUME 89 fl (80-97); RED BLOOD COUNT 4.12 10^6/uL (3.72-5.28); WHITE BLOOD COUNT 10.2 10^3/uL (4.0-10.5)
[2020-01-18 13:16] LABS: ALBUMIN 4.3 g/dL (3.5-5.0); ALKALINE PHOSPHATASE 110 U/L (38-126); ANION GAP 9 (5-19); ASPARTATE AMINO TRANSFERASE 23 U/L (14-36); BILIRUBIN,DIRECT 0.3 mg/dL (0.0-0.4); BILIRUBIN,TOTAL 0.5 mg/dL (0.2-1.3); BLOOD UREA NITROGEN 17 mg/dL (7-20); CALCIUM 9.2 mg/dL (8.4-10.2); CARBON DIOXIDE 24 mmol/L (22-30); CHLORIDE 107 mmol/L (98-107); CREATINE KINASE 120 U/L (30-135); GLUCOSE 83 mg/dL (75-110); POTASSIUM 4.4 mmol/L (3.6-5.0)
[2020-01-18 13:38] LABS: ABSOLUTE LYMPHOCYTES# (MANUAL) 1.6 10^3/uL (0.5-4.7); ABSOLUTE MONOCYTES # (MANUAL) 0.6 10^3/uL (0.1-1.4); BAND NEUTROPHILS % (MANUAL) 2 % (3-5); BASOPHILS % (MANUAL) 0 % (0-2); EOSINOPHILS % (MANUAL) 6 % (0-6); LYMPHOCYTES % (MANUAL) 14 % (13-45); MONOCYTES % (MANUAL) 6 % (3-13); SEGMENTED NEUTROPHILS % (MAN) 70 % (42-78); TOTAL CELLS COUNTED 100
[2020-01-18 13:39] LABS: PLATELET CLUMPS PRESENT; PLATELET COMMENT ADEQUATE; PLATELET COUNT 335 10^3/uL (150-450); RBC MORPHOLOGY COMMENT NORMO-CYTIC/CHROMIC
--- NOTE | 2020-01-18 13:56 | RADIOLOGY REPORT (SQ) ---
EXAM DESCRIPTION: CHEST 2 VIEWS IMAGES COMPLETED DATE/TIME: 01/18/2020 1:45 pm REASON FOR STUDY: Chest pain radiating down the left arm COMPARISON: 01/20/2017 EXAM PARAMETERS: NUMBER OF VIEWS: two views TECHNIQUE: Digital Frontal and Lateral radiographic views of the chest acquired. RADIATION DOSE: NA LIMITATIONS: none FINDINGS: LUNGS AND PLEURA: No opacities, masses or pneumothorax. No pleural effusion. MEDIASTINUM AND HILAR STRUCTURES: No masses or contour abnormalities. HEART AND VASCULAR STRUCTURES: Heart normal size. No evidence for failure. BONES: No acute findings. HARDWARE: None in the chest. OTHER: No other significant finding. IMPRESSION: NO ACUTE RADIOGRAPHIC FINDING IN THE CHEST. TECHNICAL DOCUMENTATION: JOB ID: [id number] 2010 [employer] All Rights Reserved Reading location - IP/workstation name: [email or web address]
[2020-01-18] MEDS ORDERED: METOPROLOL TARTRATE 25 MG TABLET PO ONE (14:59)
[2020-01-18] MEDS ORDERED: METOPROLOL SUCCINATE 25 MG TAB.SR.24H PO ONE (15:55)
--- NOTE | 2020-01-18 16:23 | ER Document Report ---
ED General - General Chief Complaint: Chest Pain Stated Complaint: CHEST PAIN Time Seen by Provider: 01/18/20 11:39 Primary Care Provider: ELKE GRIJALVA MD [Primary Care Provider] - Follow up as needed Mode of Arrival: Wheelchair TRAVEL OUTSIDE OF THE [place] IN LAST 30 DAYS: No - HPI Notes: Chief complaint: Palpitations History of present illness: 54-year-old female seen here [address] Christopher Fair with palpitations and a syncopal episode. Cardiac work-up in the emergency department including 2 serial troponins was negative. EKG was remarkable just for some PACs. She was referred to Dr. Grijalva from cardiology who has set her up for a Holter monitor, echocardiogram and treadmill test. She is not currently on any medications. She comes back in today with palpitations not accompanied by any syncope, presyncope or chest pain. She has however "very anxious". She is a former smoker. She is not diabetic. She does not have a history of hyperlipidemia or hypertension. She does have a family history of CAD. She has no history of thromboembolic disease. HEART Score: HISTORY 0 ECG 0 AGE 0 RISK FACTORS 1 TROPONIN 0 TOTAL: 1 If HEART score is < 3 AND both tronponin measurments are normal, the 30 day risk of a major adverse cardiac event (all-cause mortality, myocardia infarction or need for coronary revscularization) is < 1% (Sensitivity 100%, NPV 100%). Normal d-dimer 2 days ago - Related Data Allergies/Adverse Reactions: aspirin [Aspirin] Allergy (Severe, Verified 01/18/20 14:42) ondansetron HCl [From Zofran] Allergy (Severe, Verified 01/18/20 14:42) itching, redness and whelps Penicillins Allergy (Severe, Verified 01/18/20 14:42) Past Medical History - General Information source: Patient, Relative - Social History Smoking Status: Former Smoker Frequency of alcohol use: None Drug Abuse: None Lives with: Family Family History: Arthritis, CAD, DM, Hyperlipidemia, Hypertension, Malignancy, Thyroid Disfunction - Past Medical History Cardiac Medical History: Reports: Hx Hypertension Denies: Hx Heart Attack Pulmonary Medical History: Denies: Hx Asthma, Hx Bronchitis, Hx COPD, Hx Pneumonia Neurological Medical History: Denies: Hx Seizures Renal/ Medical History: Denies: Hx Peritoneal Dialysis Musculoskeletal Medical History: Denies Hx Arthritis, Reports Hx Musculoskeletal Trauma - Fractured foot Traumatic Medical History: Reports: Hx Fractures - foot Past Surgical History: Reports: Hx Cholecystectomy, Hx Vascular Surgery - neck - Immunizations Hx Diphtheria, Pertussis, Tetanus Vaccination: Yes Review of Systems - Review of Systems Notes: Constitutional: Negative for fever. HENT: Negative for sore throat. Eyes: Negative for visual changes. Cardiovascular: As per HPI Respiratory: Negative for shortness of breath. Gastrointestinal: Negative for abdominal pain, vomiting or diarrhea. Genitourinary: Negative for dysuria. Musculoskeletal: Negative for back pain. Skin: Negative for rash. Neurological: Negative for headaches, weakness or numbness. 10 point ROS negative except as marked above and in HPI. Physical Exam - Vital signs Vitals: Pulse Ox 100 01/18/20 11:40 - Notes Notes: GENERAL: Well-developed well-nourished appearing in no acute distress. SKIN: Good turgor no rashes. HEAD: Normocephalic atraumatic. EYES: PERRLA. EOMI. Conjunctivae and sclerae clear. EARS: CANALS AND TMS CLEAR. NOSE: CLEAR. MOUTH: Moist mucosa. Good dentition. No stridor or edema. No drooling. NECK: Supple. No masses or thyromegaly. No adenopathy. Carotids 2+ without bruits. No JVD. BACK: Symmetrical without tenderness. CHEST: Respirations unlabored. Breath sounds clear and symmetrical. HEART: Regular rhythm with frequent extrasystoles and we note that there are corresponding premature atrial contractions present on the monitor.. No murmur gallop or rub. ABDOMEN: Soft nontender without masses, organomegaly or rebound. Bowel sounds normally active. No bruits. GENITALIA: Deferred. EXTREMITIES: No edema. No calf tenderness. Cap refill less than 1.5 seconds. Dorsalis pedis and posterior tibial pulses 3+ and symmetrical. NEUROLOGICAL: GCS 15. Alert and oriented x3. Normal gait. Fluent speech. Cranial nerves II through XII intact. Sensorimotor and cerebellar normal. Normal tone. PSYCHIATRIC: Very anxious affect. Course - Re-evaluation Re-evalutation: 01/18/20 16:29 CBC and comprehensive metabolic profile are normal. Initial troponin is normal. TSH remains pending. Case was discussed with her taximeter repairer Dr. Grijalva. We have agreed that the p atient will be given an oral beta-rocio starting with a dose here in the emergency department. I prescribed metoprolol to succinate 25 mg. TSH is pending. We will go to get a second troponin III hours after the first. Provided this is normal she will be discharged home to follow-up tomorrow in the office with Dr. Grijalva. Findings, clinical impression and plan of treatment have been discussed with patient/family. Understanding of current findings and recommendations has been acknowledged by them and there is agreement regarding disposition and follow-up. - Vital Signs Vital signs: Temp Pulse Resp BP Pulse Ox 97.8 F 76 14 143/71 H 100 01/18/20 11:52 01/18/20 11:52 01/18/20 15:01 01/18/20 15:01 01/18/20 15:01 - Laboratory Result Diagrams: 01/18/20 12:30 01/18/20 12:30 Laboratory results interpreted by me: 01/18/20 12:30 Band Neutrophils % 2 L - EKG Interpretation by Me Additional EKG results interpreted by me: 01/18/20 16:27 Twelve-lead EKG reviewed by me contemporaneously: 1143 hrs. Indication for study: Palpitations Rhythm: Normal sinus with multiple PACs Rate: 79 Intervals: Normal QRS axis: +[address]/T wave changes: None Comparison with prior tracing: Unchanged since prior study of 01/16/2020 Interpretation: Normal sinus rhythm with frequent PACs Discharge - Discharge Clinical Impression: Palpitations, Premature atrial contractions Condition: Stable Disposition: HOME, SELF-CARE Additional Instructions: Palpitations (Irregular/Rapid Heartrate) Irregular or rapid heartbeat is called "palpitation." To diagnose the cause of palpitation, we have to "catch it in the act" with an EKG. Sinus Tachycardia: This is a rapid (but NORMAL) rhythm that can be due to fever, pain, anxiety, lack of sleep, over-exertion, or drugs. Cold medications, caffeine, and diet pills are particularly likely to cause tachycardia. Usually, all that's required is rest, reassurance, and avoiding caffeine, alcohol, nicotine, and unnecessary medicines. Paroxysmal Atrial Tachycardia (PAT): This abnormally rapid heartbeat is caused by a "short circuit" in the electrical system of the heart. It is not dangerous, unless other heart disease is present. These attacks of PAT may occur occasionally for years. Medication is available for treatment. Paroxysmal Atrial Fibrillation or Atrial Flutter: This is irregular electrical activity in the upper heart chamber. These abnormal rhythms often occur with valve disease or in hearts damaged by hardening of the arteries. These rhythms usually require further testing, for example a cardiac echo. Premature Beats: Extra beats occur more commonly after caffeine, nicotine, alcohol, cold pills, diet pills. Emotional stress or fatigue also provoke them. Extra beats are only dangerous when heart disease is present. They usually need no treatment. If they're frequent, or if evidence of heart disease develops, medication can be given to suppress them. If we were unable to "catch" the palpitations on EKG, you should try to get an EKG immediately if the symptoms begin again. Contact the physician at once if you develop persistent lightheadedness, shortness of breath, chest pain, or swelling of the ankles. Take prescribed medication as directed. Return here as needed for new or worsening symptoms: Pain that is worsening or unimproved Uncontrolled vomiting High fever or shaking chills Overall worsening Contact your taximeter repairer Dr. Grijalva tomorrow to confirm follow-up arrangements. Prescriptions: Metoprolol Succinate [Toprol Xl 25 mg Tab.sr] 25 mg PO DAILY #30 tab.sr.24h Referrals: ELKE GRIJALVA MD [Primary Care Provider] - Follow up as needed
[2020-01-18 17:10] VITALS: BP 129/71
--- NOTE | 2020-01-18 18:28 | EKG REPORT ---
SEVERITY:- ABNORMAL ECG - SINUS RHYTHM PROBABLE ANTEROSEPTAL INFARCT, AGE INDETERM : Confirmed by: Tati Landry 18-Jan-2020 18:28:19
--- NOTE | 2020-01-18 18:29 | EKG REPORT ---
SEVERITY:- ABNORMAL ECG - SINUS RHYTHM MULTIPLE ATRIAL PREMATURE COMPLEXES CONSIDER POSTERIOR INFARCT MT INTERVAL ON SHORT SIDE : Confirmed by: Tati Landry 18-Jan-2020 18:29:17
== END 2020-01-18 17:10 | disposition home or self-care (01) ==
LOC: ER 11:39
DX: I49.1 Atrial premature depolarization (principal); R00.2 Palpitations; R07.9 Chest pain, unspecified; Z87.891 Personal history of nicotine dependence; Z88.8 Allergy status to other drugs, medicaments and biological substances; Z88.0 Allergy status to penicillin; I10 Essential (primary) hypertension
CPT/HCPCS: 36415; 71046; 80053; 82550; 83735; 84443; 84484; 85025; 93005; 93010; 99285

== ENCOUNTER → 2020-02-01 | Outpatient (CLI) | payer BC ==
--- NOTE | 2020-02-01 22:21 | XCELERA REPORT ---
[address] [address] Transthoracic Echocardiogram Report Name: DARNELL BLOOD Age: 54 yrs Gender: Female : 1965 Patient Status: Outpatient Patient Location: Study Date: 02/01/2020 07:17 AM History: Syncope Height: 64 in Weight: 168 lb BSA: 1.8 m2 Procedure: A complete two-dimensional transthoracic echocardiogram was performed (2D, M-mode, spectral and color flow Doppler). The study was technically difficult with many images being suboptimal in quality. Reason For Study: SYNCOPE Previous Evaluation: No previous studies were available. Ordering Physician: ELKE GRIJALVA Performed By: Deepthi Longo Interpretation Summary Left ventricular systolic function is normal. The Ejection Fraction estimate is 55-60% The right ventricle is normal in size and function. There is a trace amount of mitral regurgitation There is no aortic valve stenosis There is a trace amount of tricuspid regurgitation There is no pericardial effusion. MMode/2D Measurements & Calculations RVDd: 1.8 cm LVIDd: 3.7 cm FS: 35.5 % Ao root diam: 2.5 cm IVSd: 0.96 cm LVIDs: 2.4 cm EDV(Teich): 57.8 ml Ao root area: 4.9 cm2 LVPWd: 0.90 cm ESV(Teich): 19.7 ml EF(Teich): 65.9 % Doppler Measurements & Calculations MV E max sam: MV dec slope: Ao V2 max: LV V1 max P.8 cm/sec 434.2 cm/sec2 134.5 cm/sec 5.1 mmHg MV A max sam: MV dec time: 0.19 sec Ao max P.2 mmHgLV V1 max: 95.1 cm/sec 113.3 cm/sec MV E/A: 0.88 PA V2 max: PI end-d sam: TR max sam: 99.0 cm/sec 84.4 cm/sec 230.8 cm/sec PA max P.9 mmHg TR max P.3 mmHg Left Ventricle The left ventricle is normal in size. There is borderline concentric left ventricular hypertrophy. Left ventricular systolic function is normal. The Ejection Fraction estimate is 55-60%. Doppler measurements suggest impaired left ventricular relaxation, which is associated with grade I/IV or mild diastolic dysfunction. No regional wall motion abnormalities noted. Right Ventricle The right ventricle is normal in size and function. Atria The right atrium is normal. The left atrial size is normal. The interatrial septum is intact with no evidence for an atrial septal defect. There is no Doppler evidence for an interatrial shunt. Mitral Valve The mitral valve is grossly normal. There is no mitral valve stenosis. There is a trace amount of mitral regurgitation. Aortic Valve The aortic valve is normal in structure and function. The aortic valve is trileaflet. The aortic valve opens well. There is no aortic valve stenosis. No aortic regurgitation is present. Tricuspid Valve The tricuspid valve is normal in structure and function. There is no tricuspid stenosis. There is a trace amount of tricuspid regurgitation. Tricuspid regurgitation jet envelope not well defined to measure RV systolic pressure accurately. Doppler findings do not suggest pulmonary hypertension. Pulmonic Valve The pulmonic valve is not well visualized. There is no pulmonic valvular stenosis. There is a trace amount of pulmonic regurgitation. Great Vessels The aortic root is normal size. The inferior vena cava appeared normal and decreased > 50% with respiration (RAP 5-10 mmHg). Effusions There is no pericardial effusion. : ELKE GRIJALVA Anil
== END ==
LOC: SP 07:49
PROVIDERS: ATTEND Internal Medicine
DX: R55 Syncope and collapse (principal); I25.9 Chronic ischemic heart disease, unspecified
CPT/HCPCS: 93306

== ENCOUNTER → 2020-02-12 | Outpatient (CLI) | payer BC ==
[~2020-02-12] MED LIST: REGADENOSON INJ 0.4 MG/5 ML DISP.SYRIN IV ONE
--- NOTE | 2020-02-13 08:30 | DRAGON STRESS TEST REPORT ---
Pharmacological nuclear stress test Date: February 13, 2020 Referring physician: Lokesh Gan MD Performing physician: Lokesh Gan MD Indication: Chest pain Clinical history 54-year-old lady with dizziness palpitations and syncope. She also has been having chest pain for the past few days. We decided to proceed with pharmacological nuclear stress test. Procedure The patient presented to the stress lab. Initially rest images were obtained according to standard protocol after the injection of 11.55 millicurie technetium 99m sestamibi. Subsequently the patient underwent pharmacological stress utilizing 0.4 mg of regadenoson intravenously. The patient's EKG and vital signs were monitored throughout the procedure. Subsequently patient was injected with34.8 millicuries of technetium 99m sestamibi. After a period of rest, stress images were obtained according to standard protocol. EKG showed sinus rhythm at 67 beats per minute. The patient's stress EKG did not show any evidence for myocardial ischemia. There were no arrhythmias observed. Raw as well as processed rest and stress images were reviewed. There was *gut uptake which did not interfere with the study. The rest and stress images show uniform uptake of radioactive isotope without any fixed or reversible defects to suggest myocardial ischemia or myocardial infarction. There is normal contractility post-stress. The calculated ejection fraction is 75%. The TID ratio is 1.05. Conclusion The stress EKG is negative for myocardial ischemia There is no scintigraphic evidence of myocardial infarction or ischemia provoked by pharmacological stress. There is normal contractility post-stress. The gated left ventricular ejection fraction is 75 %. The patient will be given an appointment to discuss these results. [facility]
== END ==
LOC: RAD 07:31
PROVIDERS: ATTEND Internal Medicine
DX: R55 Syncope and collapse (principal); I25.9 Chronic ischemic heart disease, unspecified
CPT/HCPCS: 93017; 78452; A9500; J2785; Q9969